=== PATIENT | female | born 1960 | race Caucasian/White ===

== ENCOUNTER 2016-08-01 17:19 | Emergency (ER) | payer MEDICARE ==
[~2016-08-01] VITALS: Ht 167.6 cm; Wt 60.0 kg
[2016-08-01 17:26] VITALS: BP 97/62; PULSE 110; RESP 20; TEMP 97.1; O2SAT 99
[2016-08-01] MEDS ORDERED: SODIUM CHLOR 0.9% 1000 ML INJ 1,000 ML IV ONE (17:29)
[2016-08-01] MEDS ORDERED: SODIUM CHLORIDE 0.9% FLUSH 10 ML FLUSH IVF PRN (17:30)
[2016-08-01 17:38] VITALS: PULSE 106; RESP 16; O2SAT 98
[2016-08-01 17:56] LABS: AUTOMATED NEUTROPHIL # 4.8 TH/MM3 (1.8-7.7); BASOPHIL # 0.1 TH/MM3 (0-0.2); BASOPHIL % 0.8 % (0.0-2.0); EOSINOPHIL # 0.2 TH/MM3 (0-0.4); EOSINOPHIL % 2.2 % (0.0-4.0); HEMATOCRIT 43.5 % (35.0-46.0); HEMO FLAGS DIFF FINAL; LYMPHOCYTE # 3.7 TH/MM3 (1.0-4.8); MEAN CELL VOLUME 87.9 FL (80.0-100.0); MEAN CORPUSCULAR HEMOGLOBIN 29.2 PG (27.0-34.0); MEAN CORPUSCULAR HGB CONC 33.2 % (32.0-36.0); PLATELET COUNT 368 TH/MM3 (150-450); RED BLOOD COUNT 4.95 MIL/MM3 (4.00-5.30); RED CELL DISTRIBUTION WIDTH 14.3 % (11.6-17.2); WHITE BLOOD COUNT 9.6 TH/MM3 (4.0-11.0)
--- NOTE | 2016-08-01 18:15 | RADRPT ---
EXAM DATE/TIME: 08/01/2016 17:59 [place] COMPARISON: No previous studies available for comparison. INDICATIONS : Altered mental status. RADIATION DOSE: 39.29 CTDIvol (mGy) MEDICAL HISTORY : Seizures. Hypertension. SURGICAL HISTORY : None. ENCOUNTER: Initial ACUITY: 1 day PAIN SCALE: Non-responsive LOCATION: cranial TECHNIQUE: Multiple contiguous axial images were obtained of the head. Using automated exposure control and adj ustment of the mA and/or kV according to patient size, radiation dose was kept as low as reasonably a chievable to obtain optimal diagnostic quality images. DICOM format image data is available electro nically for review and comparison. FINDINGS: CEREBRUM: The ventricles are normal for age. 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 No evidence of midline shift, mass lesion, hemorrhage or acute infarction. No extra-axial fluid collections are seen. POSTERIOR FOSSA: The cerebellum and brainstem are intact. The 4th ventricle is midline. The cerebellopontine angle i s unremarkable. EXTRACRANIAL: The visualized portion of the orbits is intact. SKULL: The calvaria is intact. No evidence of skull fracture. CONCLUSION: 1. No acute abnormality seen. 2. Suspected encephalomalacia at the right caudate head and extending into the right basal ganglia. Mario Leary MD on August 01, 2016 at 18:11 Board Certified Radiologist. This report was verified electronically.
[2016-08-01 18:27] LABS: ALKALINE PHOSPHATASE 70 U/L (45-117); TOTAL BILIRUBIN ADULT 0.3 MG/DL (0.2-1.0)
[2016-08-01 18:44] LABS: ALT (GPT) 19 U/L (10-53); ANION GAP 12 MEQ/L (5-15); AST (GOT) 25 U/L (15-37); BICARBONATE 19.7 MEQ/L (21.0-32.0); BLOOD UREA NITROGEN 21 MG/DL (7-18); CHLORIDE 110 MEQ/L (98-107); GLOMERULAR FILTRATION RATE 66 ML/MIN (>89); POTASSIUM 4.2 MEQ/L (3.5-5.1); SODIUM (NA) 142 MEQ/L (136-145)
[2016-08-01 19:04] VITALS: BP 113/71; PULSE 93; RESP 18; O2SAT 98
--- NOTE | 2016-08-01 19:16 | PD ---
HPI Chief Complaint: Seizure Time Seen by Provider: 17:29 Travel History International Travel<30 days: No Contact w/Intl Traveler<30days: No Traveled to known affect area: No History of Present Illness HPI 56-year-old female arrives following seizures. She was found in front of a store seizing. It was described as a leftward rotation of the head with leftward conjugate gaze. EMS reports estimated duration of seizure episode approximately 7 minutes. She received 2 mg of Ativan on scene and after another 4 minutes (totaling 11 minutes) seizure activity resolved. History limited due to altered mental status/postictal state upon arrival. EMS notes blood sugar 124 and seen sinus tachycardia of 124 and a blood pressure of 110 systolic. Vomiting times one observed. [facility] Past Medical History Anxiety: Yes Depression: Yes Diabetes: Yes Patient Takes Glucophage: No Hypertension: Yes Medical other: Yes (breast implants removal) Seizures: Yes ?: Not Social History Alcohol Use: Yes (occu) Tobacco Use: Yes (daily) Substance Use: No Allergies-Medications (Allergen,Severity, Reaction): Coded Allergies: UNOBTAINABLE (Unverified , 08/01/16) unresponsive Review of Systems ROS Limitations: Clinical Condition Physical Exam Narrative GENERAL: 56-year-old female well-nourished well-developed SKIN: Focused skin assessment warm/dry. HEAD: Atraumatic. Normocephalic. EYES: Pupils equal and round. No scleral icterus. No injection or drainage. ENT: No nasal bleeding or discharge. Mucous membranes pink and moist. NECK: Trachea midline. No JVD. CARDIOVASCULAR: Regular. Tachycardia. RESPIRATORY: No accessory muscle use. Clear to auscultation. Breath sounds equal bilaterally. GASTROINTESTINAL: Abdomen soft, non-tender, nondistended. Hepatic and splenic margins not palpable. MUSCULOSKELETAL: No obvious deformities. No clubbing. No cyanosis. No edema. NEUROLOGICAL: No focal cranial nerve deficit. The patient somewhat postictal at time of initial assessment however able to answer nod yes and no to basic questions. PSYCHIATRIC: Unable to assess. Data Data Last Documented VS Vital Signs Date Time Temp Pulse Resp B/P Pulse Ox O2 Delivery O2 Flow Rate FiO2 08/01/16 19:06 89 16 99 Nasal Cannula 2 08/01/16 19:04 113/71 08/01/16 17:26 97.1 vital signs reviewed Orders Complete Blood Count With Diff (08/01/16 17:29) Alcohol (Ethanol) (08/01/16 17:29) Drug Screen, Random Urine (08/01/16 17:29) Electrocardiogram (08/01/16 ) Ct Brain W/O Iv Contrast(Rout) (08/01/16 ) Blood Glucose (08/01/16 17:29) Ecg Monitoring (08/01/16 17:29) Iv Access Insert/Monitor (08/01/16 17:29) Oximetry (08/01/16 17:29) Cath For Specimen (08/01/16 17:29) Comprehensive Metabolic Panel (08/01/16 17:29) Sodium Chlor 0.9% 1000 Ml Inj (Ns 1000 M (08/01/16 17:29) Sodium Chloride 0.9% Flush (Ns Flush) (08/01/16 17:30) Ua Includes Microscopic (08/01/16 17:29) Labs Laboratory Tests Test 08/01/16 17:40 White Blood Count 9.6 TH/MM3 Red Blood Count 4.95 MIL/MM3 Hemoglobin 14.4 GM/DL Hematocrit 43.5 % Mean Corpuscular Volume 87.9 FL Mean Corpuscular Hemoglobin 29.2 PG Mean Corpuscular Hemoglobin 33.2 % Concent Red Cell Distribution Width 14.3 % Platelet Count 368 TH/MM3 Mean Platelet Volume 8.3 FL Neutrophils (%) (Auto) 50.0 % Lymphocytes (%) (Auto) 39.0 % Monocytes (%) (Auto) 8.0 % Eosinophils (%) (Auto) 2.2 % Basophils (%) (Auto) 0.8 % Neutrophils # (Auto) 4.8 TH/MM3 Lymphocytes # (Auto) 3.7 TH/MM3 Monocytes # (Auto) 0.8 TH/MM3 Eosinophils # (Auto) 0.2 TH/MM3 Basophils # (Auto) 0.1 TH/MM3 CBC Comment DIFF FINAL Differential Comment Sodium Level 142 MEQ/L Potassium Level 4.2 MEQ/L Chloride Level 110 MEQ/L Carbon Dioxide Level 19.7 MEQ/L Anion Gap 12 MEQ/L Blood Urea Nitrogen 21 MG/DL Creatinine 0.89 MG/DL Estimat Glomerular Filtration 66 ML/MIN Rate Random Glucose 104 MG/DL Calcium Level 9.4 MG/DL Total Bilirubin 0.3 MG/DL Aspartate Amino Transf 25 U/L (AST/SGOT) Alanine Aminotransferase 19 U/L (ALT/SGPT) Alkaline Phosphatase 70 U/L Total Protein 7.4 GM/DL Albumin 3.8 GM/DL Ethyl Alcohol Level 7 MG/DL MDM Medical Decision Making Medical Screen Exam Complete: Yes Emergency Medical Condition: Yes Differential Diagnosis seizure, ich, pseudoseizure, etoh intox, electrolyte imbalance Narrative Course CBC & BMP Diagram 08/01/16 17:40 LFTs normal EtOH 7 Last [address] 08/01/16 0000 Signed Impressions: Service Date/Time: Wednesday, August 01, 2016 17:59 - CONCLUSION: 1. No acute abnormality seen. 2. Suspected encephalomalacia at the right caudate head and extending into the right basal ganglia. Mario Leary MD Patient reassessed at 645 and found resting comfortably. At 645 the patient was a and O 3 and able to answer questions in detail including her past medical history including epilepsy. She takes Keppra. She has follow-up with her doctor in [place]. She reports drinking one nathanael today. She states she feels much better and is ready for discharge. The patient is resting comfortably and feels better, is alert and in no distress. The patients results and examination findings were discussed. The repeat examination is unremarkable and benign. The history, exam, diagnostic testing, and current condition do not suggest any significant pathology to warrant further testing, continued ED treatment, admission, or surgical evaluation at this point. The vital signs have been stable. The patient does not have uncontrollable pain, intractable vomiting, or other significant symptoms. The patient's condition is stable and appropriate for discharge. The patient will pursue further outpatient evaluation with a primary care physician or other designated or consulting physician as indicated in the discharge instructions. The patient expressed understanding and was agreeable with this plan. Diagnosis Primary Impression: Seizure Additional Impressions: Alcohol intoxication Qualified Code: F10.929 - Alcohol intoxication, with unspecified complication Dehydration Referrals: Primary Care Physician 2 days Additional Instructions: You have a choice when it comes to health care, and we are glad that you chose [facility]. Hopefully, we have met your expectations on today's visit. You are welcome to return to [facility] at any time, as we are committed to meeting the health care needs of our community. Med/Other Pt SpecificInfo: No Change to Meds Disposition: 01 DISCHARGE HOME Condition: Giacomo Hartman MD Aug 01, 2016 19:16
[2016-08-01 20:01] LABS: BLOOD, URINE NEG (NEG); GLUCOSE,URINE 1000 mg/dL (NEG); KETONE, URINE NEG (NEG); MUCUS URINE FEW /lpf (OCC); NITRITE,URINE NEG (NEG); SQUAMOUS EPITHELIAL CELL URINE 4 /hpf (0-5); URINE COLOR YELLOW (YELLW/STRAW)
[2016-08-01 20:03] LABS: COMMENT (UR) CATH
[2016-08-01 22:38] LABS: AMPHETAMINE, URINE NEG (NEG); BARBITURATES, URINE NEG (NEG); COCAINE, URINE NEG (NEG)
--- NOTE | 2016-08-02 11:45 | EKG ---
Date Performed: 08/01/2016 Time Performed: 18:48:22 PTAGE: 56 years EKG: Sinus rhythm POSSIBLE RIGHT ATRIAL ENLARGEMENT BORDERLINE ECG NO PREVIOUS TRACING DOCTOR: Glenn Lopez Interpretating Date/Time 08/02/2016 11:44:14
== END 2016-08-01 20:47 | disposition home or self-care (01) ==
LOC: NEPE 17:19
DX: R56.9 Unspecified convulsions (principal); F10.129 Alcohol abuse with intoxication, unspecified; E86.0 Dehydration; I10 Essential (primary) hypertension; E11.9 Type 2 diabetes mellitus without complications; F41.9 Anxiety disorder, unspecified; F32.9 Major depressive disorder, single episode, unspecified; Z72.0 Tobacco use
CPT/HCPCS: 70450; 80053; 80307; 81001; 85025; 93005; 99285; J7030; P9612